=== PATIENT | female | born 1965 | race Two or more races ===

== ENCOUNTER 2018-05-03 14:09 | Inpatient (IN) | payer MEDICAID, OTHER ==
[~2018-05-03] VITALS: Ht 157.5 cm; Wt 60.7 kg
[2018-05-03] MEDS ORDERED: SODIUM CHLORIDE 0.9% 500 ML IVB ONE (15:13)
[2018-05-03] MEDS ORDERED: MORPHINE SULFATE 4 MG/ML SYR/VIAL IV ONE (15:15)
[2018-05-03] MEDS ORDERED: ONDANSETRON HCL 4 MG/2 ML VIAL IV ONE (15:15)
[2018-05-03 15:22] LABS: Basophils # (auto) 0.1 uL; Basophils % (auto) 1.2 % (0.0-2.0); Eosinophils # (auto) 0.2 uL; Eosinophils % (auto) 1.9 % (0.0-7.0); Hematocrit 45.1 % (36.0-46.0); Hemoglobin 15.6 g/dL (12.2-16.2); Lymphocytes # (auto) 2.2 uL; Lymphocytes % (auto) 20.8 % (10.0-50.0); Mean Corpuscular Hemoglobin 31.9 pg (28.0-32.0); Mean Corpuscular Hgb Conc. 34.6 g/dL (32.0-36.0); Mean Corpuscular Volume 92.2 fL (80.0-100.0); Monocytes # (auto) 0.6 uL; Monocytes % (auto) 5.9 % (0.0-12.0); Neutrophils # (auto) 7.5 uL; Neutrophils % (auto) 70.2 % (37.0-80.0); Platelet Count (auto) 343 10^3/uL (140-450); Red Blood Cells 4.89 10^6/uL (4.0-5.20); Red Cell Distribution Width 13.8 % (11.8-14.3); White Blood Cell 10.7 10^3/uL (4.4-10.8)
[2018-05-03 15:29] LABS: Urine Bacteria NONE SEEN /hpf (None Seen); Urine Blood Negative /uL (Negative); Urine Specific Gravity 1.033 (1.001-1.035); Urine WBC 5 /hpf (0 - 5)
[2018-05-03 15:43] LABS: Alanine Aminotransferase 18 U/L (13-56); Albumin 3.4 g/dL (3.4-5.0); Alkaline Phosphatase 182 U/L (45-117); Amylase 10 U/L (25-115); Anion Gap 7 (5-15); Aspartate Aminotransferase 10 U/L (15-37); BUN/Creatinine Ratio 9.6; Bilirubin, Total 0.4 mg/dL (0.2-1.0); Blood Urea Nitrogen 8 mg/dL (7-18); Calcium 9.1 mg/dL (8.5-10.1); Carbon Dioxide 24 mmol/L (21-32); Chloride 102 mmol/L (98-107); GFR African American 93 mL/min; GFR Non-African American 77 mL/min; Glucose 388 mg/dL (74-106); Lipase 47 U/L (73-393); Sodium 133 mmol/L (136-145); Total Protein 8.5 g/dL (6.4-8.2)
[2018-05-03] MEDS ORDERED: POTASSIUM CHL 20MEQ/100ML 100 ML IV ONE (17:15)
[2018-05-03] MEDS ORDERED: TEMAZEPAM 15 MG CAP PO PRN (17:30)
[2018-05-03] MEDS ORDERED: LORazepam 0.5 MG TAB PO PRN (17:30)
[2018-05-03] MEDS ORDERED: ACETAMINOPHEN 500 MG TAB PO PRN (17:30)
[2018-05-03] MEDS ORDERED: DEXTROSE (50%) 50ML SYRG IV PRN (17:30)
[2018-05-03] MEDS ORDERED: cefTRIAXone 1GM/10ml IVPUSH 10 ML IV ONE (17:30)
[2018-05-03] MEDS ORDERED: NITROGLYCERIN 0.4 MG SL TAB SL PRN (17:30)
[2018-05-03] MEDS ORDERED: MORPHINE SULF INJ 2 MG/ML SYRINGE 1ML IV PRN (17:30)
[2018-05-03] MEDS ORDERED: IOHEXOL 300 MG/ML 100ML BOTTLE IJ ONE (17:37)
[2018-05-03] MEDS: SODIUM CHLORIDE 0.9% 1,000 ML IV SCH ×2 (17:45→19:22)
[2018-05-03] MEDS: ACCU-CHEK COMFORT CURVE STRIP VI SCH ×2 (20:27→23:33)
[2018-05-03] MEDS: InsuLIN REG 1unit/0.01ml Soln (100units/ml) SC SCH ×2 (20:28→23:33)
[2018-05-03] MEDS ORDERED: SIMV-8 PO (20:45)
[2018-05-03] MEDS ORDERED: GABA100C PO (20:45)
[2018-05-03] MEDS ORDERED: POTA10TA51 PO (20:45)
[2018-05-03 20:54] VITALS: BP 152/101
[2018-05-03] MEDS: metroNIDAZOLE 500MG/100ML 100 ML IV SCH (21:32)
[2018-05-03] MEDS ORDERED: INSLISPI SC (22:24)
[2018-05-03] MEDS: HYDROcodone-ACET 5/325MG TAB PO PRN (23:28)
[2018-05-04] MEDS: InsuLIN REG 1unit/0.01ml Soln (100units/ml) SC SCH ×6 (03:44→23:38)
[2018-05-04] MEDS: ACCU-CHEK COMFORT CURVE STRIP VI SCH ×6 (03:44→23:38)
[2018-05-04] MEDS: MORPHINE SULFATE 4 MG/ML SYR/VIAL IV PRN ×5 (04:00→22:14)
[2018-05-04 04:58] VITALS: BP 128/70
[2018-05-04 05:36] LABS: Basophils # (auto) 0.1 uL; Basophils % (auto) 0.7 % (0.0-2.0); Eosinophils # (auto) 0.3 uL; Hematocrit 41.4 % (36.0-46.0); Hemoglobin 13.7 g/dL (12.2-16.2); Lymphocytes # (auto) 3.8 uL; Mean Corpuscular Hemoglobin 30.7 pg (28.0-32.0); Mean Corpuscular Volume 92.8 fL (80.0-100.0); Monocytes # (auto) 0.7 uL; Monocytes % (auto) 7.7 % (0.0-12.0); Neutrophils # (auto) 4.6 uL; Neutrophils % (auto) 48.6 % (37.0-80.0); Nucleated Red Blood Cells % 0.1 %; Platelet Count (auto) 284 10^3/uL (140-450); Red Blood Cells 4.46 10^6/uL (4.0-5.20); White Blood Cell 9.5 10^3/uL (4.4-10.8)
[2018-05-04] MEDS: metroNIDAZOLE 500MG/100ML 100 ML IV SCH ×3 (05:38→22:12)
[2018-05-04 05:43] LABS: Albumin 2.6 g/dL (3.4-5.0); BUN/Creatinine Ratio 19.3; Calcium 7.7 mg/dL (8.5-10.1); Potassium 3.2 mmol/L (3.5-5.1)
[2018-05-04 05:45] LABS: Bilirubin, Total 0.2 mg/dL (0.2-1.0); Total Protein 6.5 g/dL (6.4-8.2)
[2018-05-04 08:50] VITALS: BP 117/79
[2018-05-04] MEDS: PANTOPRAZOLE 40 MG TAB PO SCH (08:52)
[2018-05-04] MEDS: cefTRIAXone 1GM/10ml IVPUSH 10 ML IV SCH (08:53)
[2018-05-04] MEDS: HYDROcodone-ACET 5/325MG TAB PO PRN (10:54)
[2018-05-04 12:50] VITALS: BP 107/63
[2018-05-04] MEDS: SODIUM CHLORIDE 0.9% 1,000 ML IV SCH (16:07)
[2018-05-04] MEDS: POTASSIUM CHL 20MEQ/100ML 100 ML IV SCH ×2 (16:09→18:08)
[2018-05-04] MEDS: PROMETHAZINE HCL 25 MG/ML 1ML IV PRN ×2 (16:27→22:13)
[2018-05-04 16:56] VITALS: BP 148/91
[2018-05-04 22:39] VITALS: BP 141/72
[2018-05-05] MEDS: PROMETHAZINE HCL 25 MG/ML 1ML IV PRN ×2 (04:11→09:27)
[2018-05-05] MEDS: MORPHINE SULFATE 4 MG/ML SYR/VIAL IV PRN ×3 (04:19→14:21)
[2018-05-05] MEDS: ACCU-CHEK COMFORT CURVE STRIP VI SCH ×4 (04:20→16:00)
[2018-05-05] MEDS: InsuLIN REG 1unit/0.01ml Soln (100units/ml) SC SCH ×4 (04:28→16:00)
[2018-05-05] MEDS: SODIUM CHLORIDE 0.9% 1,000 ML IV SCH ×2 (04:37→09:28)
[2018-05-05 05:14] VITALS: BP 144/86
[2018-05-05 06:21] LABS: Basophils # (auto) 0.1 uL; Basophils % (auto) 0.9 % (0.0-2.0); Eosinophils # (auto) 0.3 uL; Eosinophils % (auto) 2.8 % (0.0-7.0); Hematocrit 41.9 % (36.0-46.0); Hemoglobin 13.8 g/dL (12.2-16.2); Lymphocytes # (auto) 3.8 uL; Mean Corpuscular Hemoglobin 30.1 pg (28.0-32.0); Mean Corpuscular Hgb Conc. 32.9 g/dL (32.0-36.0); Mean Corpuscular Volume 91.5 fL (80.0-100.0); Monocytes # (auto) 0.5 uL; Monocytes % (auto) 5.5 % (0.0-12.0); Neutrophils # (auto) 4.8 uL; Neutrophils % (auto) 50.8 % (37.0-80.0); Platelet Count (auto) 295 10^3/uL (140-450); Red Blood Cells 4.58 10^6/uL (4.0-5.20); Red Cell Distribution Width 13.8 % (11.8-14.3); White Blood Cell 9.5 10^3/uL (4.4-10.8)
[2018-05-05 06:39] LABS: Albumin 2.9 g/dL (3.4-5.0); BUN/Creatinine Ratio 15.1; Bilirubin, Total 0.2 mg/dL (0.2-1.0); Calcium 8.6 mg/dL (8.5-10.1); Potassium 3.2 mmol/L (3.5-5.1); Total Protein 6.7 g/dL (6.4-8.2)
[2018-05-05] MEDS: metroNIDAZOLE 500MG/100ML 100 ML IV SCH ×2 (06:51→14:20)
[2018-05-05 09:00] VITALS: BP 136/72
[2018-05-05] MEDS: PANTOPRAZOLE 40 MG TAB PO SCH (09:25)
[2018-05-05] MEDS: POTASSIUM CHL 20MEQ/100ML 100 ML IV SCH ×2 (09:25→11:59)
[2018-05-05] MEDS: cefTRIAXone 1GM/10ml IVPUSH 10 ML IV SCH (09:28)
[2018-05-05 13:00] VITALS: BP 157/83
== END 2018-05-05 17:47 | disposition home or self-care (01) | DRG 463 ==
LOC: ER 14:09 → TELE 14:10 → TELE-WESTW 18:36
PROVIDERS: ADMIT Internal Medicine; ATTEND Internal Medicine
DX: N39.0 Urinary tract infection, site not specified (principal); E44.0 Moderate protein-calorie malnutrition; E11.65 Type 2 diabetes mellitus with hyperglycemia; E87.1 Hypo-osmolality and hyponatremia; I10 Essential (primary) hypertension; E87.6 Hypokalemia; D64.9 Anemia, unspecified; E26.81 Bartter's syndrome; E78.5 Hyperlipidemia, unspecified; F17.210 Nicotine dependence, cigarettes, uncomplicated; F32.9 Major depressive disorder, single episode, unspecified; F41.9 Anxiety disorder, unspecified; N28.1 Cyst of kidney, acquired; Z83.3 Family history of diabetes mellitus; Z71.6 Tobacco abuse counseling; Z68.24 Body mass index [BMI] 24.0-24.9, adult; Z88.6 Allergy status to analgesic agent; Z90.49 Acquired absence of other specified parts of digestive tract; Z80.41 Family history of malignant neoplasm of ovary; Z80.8 Family history of malignant neoplasm of other organs or systems; M54.30 Sciatica, unspecified side
CPT/HCPCS: 36415; 71045; 74176; 74177; 80053; 81001; 82150; 82962; 83036; 83690; 84132; 84484; 85025; 85652; 87086; 93005; 94761; 96361; 96374; 96375; J0696; J1815; J2405; J3480; J3490